=== PATIENT | female | born 1995 | race American Indian/Alaskan Native ===

== ENCOUNTER 2022-01-10 08:50 | Emergency (ER) | payer MEDICAID ==
--- NOTE | 2022-01-10 09:34 | XRay Report ---
CHEST 2 VIEWS INDICATION / CLINICAL INFORMATION: Chest Pain. COMPARISON: None available. FINDINGS: SUPPORT DEVICES: None. HEART / MEDIASTINUM: No significant abnormality. LUNGS / PLEURA: No significant pulmonary or pleural abnormality. No pneumothorax. ADDITIONAL FINDINGS: No significant additional findings. IMPRESSION: 1. No acute findings. Signer Name: Mckay Dyson MD Signed: 01/10/2022 9:30 AM Workstation Name: [email or web address] [id number]
[2022-01-10 11:32] LABS: Alanine Aminotransferase 13 units/L (7-56); Albumin 4.7 g/dL (3.9-5); Blood Urea Nitrogen 15 mg/dL (7-17); Hemolysis Index 19
[2022-01-10 11:34] LABS: Basophils # (Auto) 0.2 K/mm3 (0.0-0.1); Basophils % (Auto) 1.2 % (0.0-1.8); Eosinophils # (Auto) 0.1 K/mm3 (0.0-0.4); Eosinophils % (Auto) 0.4 % (0.0-4.3); Hematocrit 43.5 % (30.3-42.9); Hemoglobin 14.5 gm/dl (10.1-14.3); Lymphocytes # (Auto) 1.9 K/mm3 (1.2-5.4); Lymphocytes % (Auto) 9.8 % (13.4-35.0); Mean Corpuscular HGB Conc 33 % (30-34); Mean Corpuscular Volume 94 fl (79-97); Monocytes # (Auto) 1.1 K/mm3 (0.0-0.8); Monocytes % (Auto) 5.6 % (0.0-7.3); Platelet Count 285 K/mm3 (140-440); Red Blood Count 4.64 M/mm3 (3.65-5.03); Red Cell Distribution Width 12.9 % (13.2-15.2)
[2022-01-10 11:47] LABS: BUN/Creatinine Ratio 30
[2022-01-11] MEDS ORDERED: ASPIRIN 81 MG TAB CHEW PO ONE (00:55)
--- NOTE | 2022-01-11 01:00 | Emergency Department Report ---
ED Chest Pain HPI - General Chief Complaint: Chest Pain Stated Complaint: CHEST PAIN Time Seen by Provider: 01/11/22 00:29 Source: patient Mode of arrival: Ambulatory Limitations: No Limitations - History of Present Illness Initial Comments: 26 yo F who present with chest pain that started yesterday about 12 hours and progressively worsening. No fever or chills reported. Taken deep breath worsen the pain in the middle of her chest. No other modifying or associated factors. MD Complaint: chest pain Severity scale (0 -10): 5 - Related Data Previous Rx's Medication Instructions Recorded Last Taken Type Cyclobenzaprine [Flexeril] 10 mg PO TID PRN 5 Days #15 tab NS 01/11/22 Unknown Rx Ketorolac [Toradol] 10 mg PO Q6H PRN 5 Days #20 tab NS 01/11/22 Unknown Rx Omeprazole Magnesium [PriLOSEC Otc] 20 mg PO BID 30 Days #60 tab NS 01/11/22 Unknown Rx Allergies Allergy/AdvReac Type Severity Reaction Status Date / Time No Known Allergies Allergy Verified 01/10/22 08:58 Heart Score - HEART Score History: Slightly suspicious EKG: Normal Age: < 45 Risk factors: No known risk factors Troponin: < normal limit HEART Score: 0 - EKG Read Time Time EKG Completed: 08:57 EKG Read Time: 09:01 - Critical Actions Critical Actions: 0-3 pts:0.9-1.7%risk of adverse cardiac event.Candidate for discharge ED Review of Systems ROS: Stated complaint: CHEST PAIN Other details as noted in HPI Comment: All other systems reviewed and negative Respiratory: denies: cough, shortness of breath Cardiovascular: chest pain. denies: palpitations ED Past Medical Hx - Medications Home Medications: Home Medications Medication Instructions Recorded Confirmed Last Taken Type Cyclobenzaprine [Flexeril] 10 mg PO TID PRN 5 Days #15 tab NS 01/11/22 Unknown Rx Ketorolac [Toradol] 10 mg PO Q6H PRN 5 Days #20 tab NS 01/11/22 Unknown Rx Omeprazole Magnesium [PriLOSEC Otc] 20 mg PO BID 30 Days #60 tab NS 01/11/22 Unknown Rx ED Physical Exam - General Limitations: No Limitations General appearance: alert, in no apparent distress - Head Head exam: Present: normal inspection - Eye Eye exam: Present: normal appearance Pupils: Present: normal accommodation - ENT ENT exam: Present: normal exam, normal orophraynx, mucous membranes moist - Neck Neck exam: Present: normal inspection, full ROM. Absent: tenderness - Respiratory Respiratory exam: Present: normal lung sounds bilaterally. Absent: respiratory distress, accessory muscle use - Cardiovascular Cardiovascular Exam: Present: regular rate, normal rhythm, normal heart sounds - GI/Abdominal GI/Abdominal exam: Present: soft, normal bowel sounds. Absent: distended, tenderness - Extremities Exam Extremities exam: Present: normal inspection, normal capillary refill. Absent: tenderness, pedal edema - Back Exam Back exam: Present: normal inspection, full ROM. Absent: tenderness, CVA tenderness (R), CVA tenderness (L) - Neurological Exam Neurological exam: Present: alert, oriented X3 - Psychiatric Psychiatric exam: Present: normal affect, normal mood - Skin Skin exam: Present: warm, normal color ED Course Vital Signs 01/10/22 01/11/22 08:53 01:10 Temperature 98.1 F 98.2 F Pulse Rate 95 H 66 Respiratory 16 18 Rate Blood Pressure 129/89 102/67 [Right] O2 Sat by Pulse 98 100 Oximetry BRANDEE score - Brandee Score Age > 65: (0) No Aspirin use within the Past 7 Days: (0) No 3 or more CAD Risk Factors: (0) No 2 or more Angina events in past 24 hrs: (0) No Known CAD with more than 50% Stenosis: (0) No Elevated Cardiac Markers: (0) No ST Deviation Greater than 0.5mm: (0) No BRANDEE Score: 0 ED Medical Decision Making - Lab Data Result diagrams: 01/10/22 10:35 01/10/22 10:35 - EKG Data -: EKG Interpreted by Ia EKG shows normal: sinus rhythm Rate: normal - EKG Data 01/11/22 01:02 His initial EKG shows normal sinus rhythm at a rate of 77 bpm with ventricular premature complex and no ST depression or ST elevation in this borderline ECG. - Radiology Data Chest x-ray did not show any acute pulmonary findings. - Medical Decision Making Here with chest pain/pressure--differential could be but not limited to myocardial infarction, pulmonary embolism, costochondritis, anxiety, gastritis, GERD, pancreatitis, and or pyelonephritis--in order to rule out the above-- so will go ahead and order routine cardiopulmonary work-up that include troponin, EKG, chest x-ray, BNP, CKMB, and CBC, CMP and urinalysis for any correctable infectious process or electrolyte abnormality as a cause. This is likely pleurisy versus acid reflux/spasm-- Noted with normal initial troponin and EKG without any ST elevation or depression--which supports the notion that this is likely noncardiac Given aspirin 324 mg p.o. x1-- Labs reviewed and noted with leukocytosis that is likely reactive Critical care attestation.: If time is entered above; I have spent that time in minutes in the direct care of this critically ill patient, excluding procedure time. ED Disposition Clinical Impression: Non-cardiac chest pain, Pleurisy Disposition: HOME / SELF CARE / HOMELESS Is pt being admited?: No Does the pt Need Aspirin: No Condition: Stable Instructions: Nonspecific Chest Pain, Adult, [id number], Pleurisy, [id number] Additional Instructions: Take your pain medicine as prescribed to help your symptoms Call and schedule follow-up with your primary doctor in the next 3 to 5 days for progress Please do not hesitate to call or return to emergency room if your symptoms worsen Prescriptions: Cyclobenzaprine [Flexeril] 10 mg PO TID PRN 5 Days #15 tab NS PRN Reason: Muscle Spasm Omeprazole Magnesium [PriLOSEC Otc] 20 mg PO BID 30 Days #60 tab NS Ketorolac [Toradol] 10 mg PO Q6H PRN 5 Days #20 tab NS PRN Reason: Pain Referrals: PRIMARY CARE, [Primary Care Provider] - 3-5 Days Time of Disposition: 03:43
[2022-01-11 03:54] VITALS: BP 101/67
--- NOTE | 2022-01-11 10:32 | Electrocardiograph Report ---
[facility] Test Date: 2022-01-10 Test Time: 08:57:19 Pat Name: NATALIO LINARES Department: Room: Gender: F Associate Justice: DUNCAN : 1995 Requested By: KHADAR PANTOJA Order Number: [id number] Reading MD: Antonio Gallagher Measurements Intervals Heaters Rate: 77 P: 77 FL: 156 QRS: 70 QRSD: 86 T: 68 QT: 380 QTc: 434 Interpretive Statements Sinus rhythm Ventricular premature complex Probable left atrial enlargement No previous ECG available for comparison Electronically Signed On 01-11-2022 10:32:37 EDT by Antonio Gallagher
== END 2022-01-11 03:55 | disposition home or self-care (01) ==
LOC: ED 08:50
DX: R07.9 Chest pain, unspecified (principal); R09.1 Pleurisy
CPT/HCPCS: 36415; 71046; 80053; 84484; 85025; 93005; 99284